=== PATIENT | female | born 1980 | race Caucasian/White ===

== ENCOUNTER → 2020-04-26 | Outpatient (CLI) | payer OTHER ==
[~2020-04-26] MED LIST: LEVO25TA4 PO; LISI-167 PO
[2020-04-26 16:01] LABS: ALBUMIN 4.3 g/dL (3.4-5.0); CALCIUM 8.9 mg/dL (8.5-10.1); CHLORIDE 108 mmol/L (98-107)
[2020-04-26 16:05] LABS: ALANINE AMINOTRANSFERASE 21 U/L (12-78); ALKALINE PHOSPHATASE 101 U/L (45-117); BILIRUBIN,TOTAL 0.3 mg/dL (0.2-1.0); CREATININE 0.73 mg/dL (0.55-1.02)
[2020-04-26 16:19] LABS: ANION GAP 3 mmol/L (5-15)
== END | disposition home or self-care (01) ==
LOC: STAR 14:00
PROVIDERS: ATTEND Surgery
DX: Z01.812 Encounter for preprocedural laboratory examination (principal); Z20.828 Contact with and (suspected) exposure to other viral communicable diseases
CPT/HCPCS: 80053; 87635

== ENCOUNTER 2020-05-02 06:03 | Inpatient (IN) | payer OTHER ==
[~2020-05-02] VITALS: Ht 177.8 cm; Wt 95.0 kg
[2020-05-02] MEDS ORDERED: CHLORHEXIDINE 15 ML UDC MM ONE (06:30)
[2020-05-02] MEDS ORDERED: CHLORHEXIDINE 15 ML UDC ONE (06:35)
[2020-05-02] MEDS ORDERED: LACTATED RINGERS 1,000 ML IV SCH ×2 (07:00→12:30)
[2020-05-02] MEDS ORDERED: FENTANYL PF 250 MCG/5ML ONE ×2 (07:12→07:57)
[2020-05-02] MEDS ORDERED: MIDAZOLAM 1 MG/ML, 2ML ONE (07:12)
[2020-05-02 07:14] LABS: HCG UR SG 1.023 (1.003-1.030)
[2020-05-02] MEDS ORDERED: DEXAMETHASONE 4 MG/ML, 1ML ONE (07:25)
[2020-05-02] MEDS ORDERED: SUCCINYLCHOLINE 20 MG/ML, 10ML ONE (07:25)
[2020-05-02] MEDS ORDERED: PROPOFOL 10 MG/ML, 20ML ONE (07:25)
[2020-05-02] MEDS ORDERED: SUGAMMADEX 200 MG/2 ML IVPush ONE (07:25)
[2020-05-02] MEDS ORDERED: CEFAZOLIN 1,000 MG ONE (07:25)
[2020-05-02] MEDS ORDERED: ROCURONIUM 10 MG/ML,10ML ONE (07:25)
[2020-05-02] MEDS ORDERED: ONDANSETRON 2MG/ML, 2ML ONE ×2 (07:25→10:13)
[2020-05-02] MEDS ORDERED: ALBUTEROL SULFATE 2.5 MG/3 ML NPPB PRN (08:00)
[2020-05-02] MEDS ORDERED: PROMETHAZINE 25 MG/ML, 1ML IV PRN (08:00)
[2020-05-02] MEDS ORDERED: KETOROLAC 30 MG/1 ML IV PRN (08:00)
[2020-05-02] MEDS ORDERED: hydrALAzine 20 MG/ML, 1ML IV PRN (08:00)
[2020-05-02] MEDS ORDERED: DIAZEPAM 5 MG/ML, 2ML IV PRN ×2 (08:00)
[2020-05-02] MEDS ORDERED: OXYcodone 5 MG/5 ML ORAL.SOL UDC PO PRN (08:00)
[2020-05-02] MEDS ORDERED: LABETALOL 5MG/ML, 20ML IV PRN (08:00)
[2020-05-02] MEDS ORDERED: METOCLOPRAMIDE 5 MG/ML, 2ML IV PRN (08:00)
[2020-05-02] MEDS ORDERED: ONDANSETRON 2MG/ML, 2ML IVPush PRN (08:00)
[2020-05-02] MEDS ORDERED: MEPERIDINE/PF 25MG/0.5ML IVPush PRN (08:00)
[2020-05-02] MEDS ORDERED: DIAZEPAM 5 MG/ML, 2ML ONE (09:52)
[2020-05-02] MEDS ORDERED: FENTANYL PF 100 MCG/2ML ONE (09:52)
[2020-05-02] MEDS: FENTANYL PF 100 MCG/2ML IV PRN ×2 (09:58→10:27)
[2020-05-02] MEDS ORDERED: hydrALAzine 20 MG/ML, 1ML ONE (10:07)
[2020-05-02] MEDS ORDERED: HYDROmorphone 1 MG/ML, 1ML INJ ONE (10:17)
[2020-05-02] MEDS: HYDROmorphone 1 MG/ML, 1ML INJ IV PRN ×2 (10:43→10:51)
[2020-05-02] MEDS ORDERED: DIPHENHYDRAMINE 50 MG/ML, 1ML IV PRN (12:30)
[2020-05-02] MEDS ORDERED: ONDANSETRON 2MG/ML, 2ML IV PRN (12:30)
[2020-05-02] MEDS ORDERED: morphine SULFATE 10 MG/ML, 1ML IV PRN (12:30)
[2020-05-02] MEDS ORDERED: DIPHENHYDRAMINE 25 MG CAPSULE PO PRN (13:00)
[2020-05-02 15:40] VITALS: BP 167/91
[2020-05-02] MEDS ORDERED: LISINOPRIL 10 MG TABLET ONE (15:46)
[2020-05-02] MEDS: LISINOPRIL 10 MG TABLET PO SCH (15:47)
[2020-05-02 17:11] VITALS: BP 180/104
[2020-05-02] MEDS: hydrALAzine 20 MG/ML, 1ML IV PRN (17:45)
[2020-05-02 18:15] VITALS: BP 132/85
[2020-05-02 19:04] LABS: ALBUMIN 4.1 g/dL (3.4-5.0); CALCIUM 8.6 mg/dL (8.5-10.1)
[2020-05-02 19:33] VITALS: BP 140/88
[2020-05-02] MEDS: HYDROcodone/APAP 5/325 TABLET PO PRN (19:48)
[2020-05-03] MEDS: HYDROcodone/APAP 5/325 TABLET PO PRN ×3 (00:33→09:06)
[2020-05-03 00:36] VITALS: BP 153/96
[2020-05-03] MEDS: hydrALAzine 20 MG/ML, 1ML IV PRN (00:44)
[2020-05-03 02:05] LABS: ALBUMIN 3.8 g/dL (3.4-5.0); CALCIUM 8.5 mg/dL (8.5-10.1)
[2020-05-03 04:29] VITALS: BP 141/81
[2020-05-03] MEDS ORDERED: LEVOTHYROXINE 25 MCG TABLET PO SCH (06:00)
[2020-05-03 06:46] LABS: ALBUMIN 3.8 g/dL (3.4-5.0); CALCIUM 8.9 mg/dL (8.5-10.1)
[2020-05-03 07:21] VITALS: BP 150/90
[2020-05-03] MEDS ORDERED: LEVO125T PO (08:46)
[2020-05-03] MEDS ORDERED: HYDR-3652 PO (08:47)
[2020-05-03] MEDS: LISINOPRIL 10 MG TABLET PO SCH (08:56)
[2020-05-03] MEDS ORDERED: LISINOPRIL 10 MG TABLET PO SCH (09:00)
[2020-05-03] MEDS ORDERED: LACTATED RINGERS 1,000 ML IV SCH (12:30)
== END 2020-05-03 09:40 | disposition home or self-care (01) | DRG 627 ==
LOC: OUT 06:03 → 4NW 11:12 → OUT 11:17 → DCLOUNGE 05-03 09:31
PROVIDERS: ADMIT Surgery; ATTEND Surgery
PROC: 07T10ZZ Resection of Right Neck Lymphatic, Open Approach (ICD-10-PCS; 2020-05-02)
PROC: 0GBH0ZZ Excision of Right Thyroid Gland Lobe, Open Approach (ICD-10-PCS; 2020-05-02)
PROC: 0GBG0ZX Excision of Left Thyroid Gland Lobe, Open Approach, Diagnostic (ICD-10-PCS; principal; 2020-05-02 07:30)
DX: C73 Malignant neoplasm of thyroid gland (principal)
CPT/HCPCS: 36415; 81025; 82040; 82310; 88305; 88307; G0378; J0690; J1100; J1170; J2250; J2405; J2704; J3010; J3360; C1760; J0330; J0360; J1200; J7120